=== PATIENT | male | born 2000 | race Caucasian/White ===

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

== ENCOUNTER → 2022-04-01 | Outpatient (CLI) | payer OTHER | LOC: M RAD 13:37 | PROVIDERS: ATTEND Physician Assistant Medical | DX: S92.322A Displaced fracture of second metatarsal bone, left foot, initial encounter for closed fracture (principal); W18.30XA Fall on same level, unspecified, initial encounter; Y92.009 Unspecified place in unspecified non-institutional (private) residence as the place of occurrence of the external cause ==

== ENCOUNTER 2022-08-27 16:15 | Emergency (ER) | payer OTHER ==
[~2022-08-27] VITALS: Ht 190.5 cm; Wt 98.5 kg
[2022-08-27] MEDS ORDERED: NS 1,000 ML IV ONE (16:55)
[2022-08-27] MEDS ORDERED: KETOROLAC 30 MG/ML 1ML VIAL IV ONE (16:55)
[2022-08-27 17:29] LABS: BASO # 0.2 10^3/uL (0.0-0.2); BASO % 1.3 % (0.0-1.0); EOS # 0.1 10^3/uL (0.0-0.5); EOS % 0.8 % (0.0-3.0); HEMATOCRIT 41.1 % (42.0-52.0); HEMOGLOBIN 13.8 g/dl (13.5-17.5); LYMPH # 9.6 10^3/uL (1.5-5.0); LYMPH % 73.2 % (24.0-44.0); MEAN CORPUSCULAR HEMOGLOBIN 30.5 pg (27.0-33.0); MEAN CORPUSCULAR HGB CONC 33.6 g/dl (32.0-36.5); MEAN CORPUSCULAR VOLUME 90.9 fl (80.0-96.0); MONO # 0.9 10^3/uL (0.0-0.8); MONO % 6.6 % (2.0-8.0); NEUTROPHILS # 2.3 10^3/uL (1.5-8.5); NEUTROPHILS % 17.9 % (36.0-66.0); PLATELET COUNT, AUTOMATED 262 10^3/uL (150-450); RED BLOOD COUNT 4.52 10^6/uL (4.30-6.10); WHITE BLOOD COUNT 13.1 10^3/uL (4.0-10.0)
[2022-08-27 17:49] LABS: BLOOD UREA NITROGEN 10 MG/DL (9-23); CALCIUM LEVEL 8.2 MG/DL (8.5-10.1); CARBON DIOXIDE LEVEL 30 MMOL/L (20-31); CHLORIDE LEVEL 104 MMOL/L (98-107); CREATININE FOR GFR 1.09 MG/DL (0.70-1.30); GLUCOSE, FASTING 78 MG/DL (60-100); POTASSIUM SERUM 4.4 MMOL/L (3.5-5.1); SODIUM LEVEL 139 MMOL/L (136-145)
[2022-08-27] MEDS ORDERED: ISOVUE-370 76% 100ML VIAL As Ordered ONE (18:08)
[2022-08-27] MEDS ORDERED: CLINDAMYCIN 600 MG in IV 1 EA IV ONE (19:30)
[2022-08-27] MEDS ORDERED: CLIN150C17 PO (20:49)
[2022-08-27] MEDS ORDERED: IBUP-1022 PO (20:49)
[2022-08-27 21:22] VITALS: BP 118/62
[2022-08-28] MEDS ORDERED: CLIN150C17 PO (01:42)
== END 2022-08-27 21:25 | disposition home or self-care (01) ==
LOC: M ED 16:15
DX: J02.9 Acute pharyngitis, unspecified (principal); R59.9 Enlarged lymph nodes, unspecified
CPT/HCPCS: 70491; 80048; 85025; 96365; 96375; 99283; J1100; J1885; Q9967; S0077